=== PATIENT | female | born 1990 | race Two or more races ===

== ENCOUNTER 2018-06-03 01:37 | Day surgery (SDC) | payer BC ==
[~2018-06-03] VITALS: Ht 152.4 cm; Wt 48.5 kg
[~2018-06-03 01:37] MED LIST: DOXY25TA54 PO; MULT1CAP59 PO; VITA0.4T10 PO
[2018-06-03] MEDS ORDERED: fentaNYL CITR 100 MCG/2 ML AMP ONE ×2 (10:41→12:48)
[2018-06-03] MEDS ORDERED: DEXAMETHASONE SOD PHOS 10MG/ML ONE (10:41)
[2018-06-03] MEDS ORDERED: PROPOFOL EMUL(*) 10MG/ML 20 ML 40 ML ONE (10:41)
[2018-06-03] MEDS ORDERED: ONDANSETRON 4 MG/2 ML VIAL ONE (10:41)
[2018-06-03] MEDS ORDERED: LIDOCAINE MPF 1% 5 ML VIAL ONE (10:41)
[2018-06-03] MEDS ORDERED: PROPOFOL EMUL(*) 10MG/ML 20 ML 20 ML ONE (10:42)
[2018-06-03 10:57] LABS: PLATELET COUNT, AUTOMATED 301 K/uL (150-450)
[2018-06-03] MEDS ORDERED: LIDOCAINE/SOD BICARB 8.4% SYR ID ONE (11:15)
[2018-06-03] MEDS ORDERED: MIDAZOLAM 2 MG/2 ML VIAL IVP PRN (11:15)
[2018-06-03] MEDS ORDERED: NORMOSOL R SOLN(*) 1000 ML BAG 1,000 ML IV PRN (11:15)
[2018-06-03] MEDS ORDERED: FAMOTIDINE 20 MG TAB PO ONE (11:15)
[2018-06-03 11:33] VITALS: BP 102/58
[2018-06-03] MEDS ORDERED: SCOP1PAT16 TD (11:52)
[2018-06-03] MEDS ORDERED: NS 0.9% 20 ML SDV 20 ML ONE (12:02)
[2018-06-03] MEDS ORDERED: SILVER NITRATE SWABS 10 PKG TP ONE (12:03)
[2018-06-03] MEDS ORDERED: LR(*) 1000 ML BAG 1,000 ML IV ONE (12:20)
[2018-06-03] MEDS ORDERED: KETOROLAC 30 MG/ML VIAL ONE (12:25)
[2018-06-03] MEDS ORDERED: IBUP800T37 PO (12:27)
--- NOTE | 2018-06-03 12:34 | Hospitalist Depart ---
Discharge Summary Reason for Hosp/Final Diag: (1) History of dilation and curettage (2) Missed (3) Blighted ovum and nonhydatidiform mole Departure Weight (Pounds): 107 Result Diagram: 06/03/18 1047 Condition: Improved Discharge: Home Discharge Instructions Home Meds Active Scripts Ibuprofen (IBUPROFEN) 800 Mg Tablet, 1 TAB PO Q8H, #30 TAB 0 Refills Take with food every 8 hours. Prov:MICHELLE DAVIS 06/03/18 Reported Medications Scopolamine (Scopolamine) 1 Mg/3 Day Patch.td.3, 1 ADH.PATCH TD ONCE 06/03/18 Vitamin B Complex/Folic Acid (VITAMIN B-50 COMPLEX TABLET) 0.4 Mg Tablet, 0.4 MG PO HS 06/02/18 Multivitamin (MULTIVITAMINS) 1 Each Capsule, 1 EACH PO QDAY, CAPSULE 06/02/18 Doxylamine Succinate (UNISOM SLEEP AID) 25 Mg Tablet, 50 MG PO HS 06/02/18 Diet: Regular Activity: As Tolerated Special Instructions: Pelvic rest for 2 weeks Venous Thromboembolism VTE Risk Patient's VTE Risk: Low VTE Diagnostic Test 2 Days Prior to Admit: No Antithrombotics Is Pt On Any Antithrombotics?: No MICHELLE DAVIS Jun 03, 2018 12:34
--- NOTE | 2018-06-03 12:37 | Post Operative Note ---
Operative Note - [employer] Operative Day Date: Jun 03, 2018 Time: 12:36 Physicians Surgeon: Brando Anesthesia: GEN LMA Diagnosis Pre-Op Diagnosis: missed AB Post-Op Diagnosis: same Procedure Procedure(s): suction d&C Specimen Removed:(Maybe N/A): POC Complications: none Fluids Fluids: IV cyrstalloid Estimated Blood Loss: minimal Dictated Date OP Note Dictated: Jun 03, 2018 Time OP Note Dictated: 12:37 Copies to: JORGE LUIS HANNAH MD ; JORGE LUIS HANNAH MD Jun 03, 2018 12:37
[2018-06-03] MEDS ORDERED: PROMETHAZINE 25 MG/ML 1 ML AMP ONE (13:23)
[2018-06-03 13:45] VITALS: BP 112/56
[2018-06-03 14:00] VITALS: BP 111/63
[2018-06-03 14:02] VITALS: BP 124/73
--- NOTE | 2018-06-03 16:06 | OPERATIVE REPORT 1 ---
EVENT DATE: June 03, 2018 SURGEON: Henry Michaels MD ANESTHESIOLOGIST: Jorge Wiseman MD ANESTHESIA: General LMA. PREOPERATIVE DIAGNOSIS Missed spontaneous (blighted ovum). POSTOPERATIVE DIAGNOSIS Missed spontaneous (blighted ovum). PROCEDURE PERFORMED Suction dilation and curettage. ESTIMATED BLOOD LOSS Minimal. FLUIDS IV crystalloid. MEDICATIONS ADMINISTERED 1. Mefoxin 2 g IV. 2. Methergine 0.2 mg IM times one. PROCEDURE IN DETAIL The patient was brought to the operating room with a working IV, placed in the dorsal supine position. She was placed under general LMA anesthesia and moved to the dorsal lithotomy position. She was then prepped and draped in the usual sterile fashion. A weighted speculum was placed in the vagina, and the cervix was grasped on the anterior lip with a single tooth tenaculum. It was carefully sounded to a depth of 8 cm. The cervix was then carefully dilated to a size 7 Hegar dilator, and a 7 mm curved suction curette was selected and assembled. It was passed through the cervix into the uterus, and suction was applied to a pressure of 40 mmHg. It was rotated about while it was carefully withdrawn with a moderate amount of products of conception removed. It was carefully withdrawn all the way, and a sharp bovine curette was passed through the cervix into the uterus, and all four quadrants of the uterine arzate were curetted. A soft texture was palpable on the first pass; therefore, an additional pass with the curved suction curette removed a moderate amount of products of conception. Once completed, an additional pass with the curved suction curette now revealed a more gritty texture, and all four quadrants of the uterus were curetted until that gritty texture was consistent. It was then removed. Curved suction curette was then passed through the cervix into the uterus, and the remaining additional products of conception were evacuated. Once completed, there was a scant amount of bleeding. She was administered 0.2 mg of Methergine IM during the procedure. Awakened from general anesthesia in stable condition and taken to Recovery. [facility]
[2018-06-03 16:52] VITALS: BP 112/56
[2018-06-04] MEDS ORDERED: MIDAZOLAM 2 MG/2 ML VIAL IVP PRN (11:15)
== END 2018-06-03 13:45 | disposition home or self-care (01) ==
LOC: OR 01:37
PROVIDERS: ATTEND Obstetrics & Gynecology
DX: O02.1 Missed abortion (principal); O02.0 Blighted ovum and nonhydatidiform mole
CPT/HCPCS: 36415; 59820; 84702; 85025; 88305; J0694; J1100; J1885; J2001; J2250; J2405; J2550; J2704; J3010; J7050

== ENCOUNTER 2018-09-21 16:14 | Emergency (ER) | payer BC ==
[~2018-09-21 16:14] MED LIST changes: +IBUP800T37 PO; +SCOP1PAT16 TD
[2018-09-21] MEDS ORDERED: NS(*) 0.9% 1000 ML BAG 1,000 ML IV ONE (16:20)
--- NOTE | 2018-09-21 16:52 | ER Report ---
History and Physical Time Seen By MD: 16:34 Hx. of Stated Complaint: 6-week OB presenting with vaginal bleeding, spotting started last night. R suprapubic tenderness and cramping. (ISAAC MIRZA DO) HPI/ROS CHIEF COMPLAINT: spotting HISTORY OF PRESENT ILLNESS: Pt here for evaluation of spotting. Pt states she is 6 weeks . Has an appt for blood test this Friday and an Ultrasound and ob appt on the . Pt states yesterday had some light spotting that was dark brown. Had some cramping overnight. Today after walking the dog her s potting became greater. Not has heavy as a period. Came her to be checked. no dysuria. Pt has hx of nonhydidiform mole back in May 2018 REVIEW OF SYSTEMS: Constitutional: No fever, no chills. Eyes: No discharge. ENT: No sore throat. Cardiovascular: No chest pain, no palpitations. Respiratory: No cough, no shortness of breath. Gastrointestinal: No abdominal pain, no vomiting. Genitourinary: No hematuria, + spotting Musculoskeletal: No back pain. Skin: No rashes. Neurological: No headache. (ISAAC MIRZA DO) Allergies: Coded Allergies: No Known Drug Allergies (Unverified , 06/02/18) Home Meds Active Scripts Ibuprofen (IBUPROFEN) 800 Mg Tablet, 1 TAB PO Q8H, #30 TAB 0 Refills Take with food every 8 hours. Prov:MICHELLE DAVIS 06/03/18 Reported Medications Vitamin B Complex/Folic Acid (VITAMIN B-50 COMPLEX TABLET) 0.4 Mg Tablet, 0.4 MG PO HS 06/02/18 Multivitamin (MULTIVITAMINS) 1 Each Capsule, 1 EACH PO QDAY, CAPSULE 06/02/18 Doxylamine Succinate (UNISOM SLEEP AID) 25 Mg Tablet, 50 MG PO HS 06/02/18 Past Medical/Surgical History Pmhx: non hadidiform mole PSHX; DE (ISAAC MIRZA DO) Reviewed Nurses Notes: Yes Old Medical Records Reviewed: Yes (ISAAC MIRZA DO) Hx Smoking: No Hx Substance Use Disorder: No Hx Alcohol Use: No (ISAAC MIRZA DO) Constitutional Vital Sign - Last 24 Hours 09/21/18 09/21/18 09/21/18 09/21/18 16:24 16:29 16:44 16:47 Temp 98.5 Pulse 88 ??? 85 Resp 16 B/P (MAP) 120/84 (96) 125/75 (92) 125/75 Pulse Ox 99 99 O2 Delivery Room Air 09/21/18 09/21/18 09/21/18 09/21/18 17:00 17:29 17:30 17:44 Pulse 86 104 B/P (MAP) 125/60 (81) 108/58 (75) Pulse Ox 97 09/21/18 09/21/18 09/21/18 09/21/18 17:59 18:00 18:10 18:15 Pulse 95 92 89 B/P (MAP) 122/67 (85) Pulse Ox 96 97 09/21/18 09/21/18 09/21/18 09/21/18 18:30 18:45 19:00 19:15 Pulse 81 82 76 85 B/P (MAP) 110/62 (78) 112/59 (76) Pulse Ox 99 99 97 96 09/21/18 19:30 Pulse 90 B/P (MAP) 117/82 (94) Pulse Ox 97 (EVELYN NUNES MD) Physical Exam General Appearance: The patient is alert, has no immediate need for airway protection and no signs of toxicity. Eyes: Pupils equal and round no pallor or injection, EOMI ENT: no pharyngeal erythema or exudates, Mucous membranes are moist Respiratory: There are no retractions, lungs are clear to auscultation. Cardiovascular: Regular rate and rhythm. pulses are equal and symmetrical Gastrointestinal: Abdomen is soft and non tender, no masses, bowel sounds normal, no guarding, no rigidity or rebound Pelvic: No blood in vault; Os closed, No cervical motion tendness Neurological: Cranial nerves II-XII grossly intact, no sensory or motor loss Skin: Warm and dry, no rashes. Musculoskeletal: Neck is supple non tender, no vertebral tenderness Extremities are nontender, nonswollen and have full range of motion. DIFFERENTIAL DIAGNOSIS: After history and physical exam differential diagnosis w as considered for threatened AB, miscarriage (LAURORA,ISAAC V DO) Medical Decision Making Data Points Laboratory Hematology Test 09/21/18 16:35 Human Chorionic Gonadotropin, Quant 05896 mIU/ml Chemistry Test 09/21/18 16:35 Human Chorionic Gonadotropin, Quant 51602 mIU/ml (EVELYN NUNES MD) EKG/Imaging Imaging EXAMINATION: Transvaginal first trimester OB ultrasound HISTORY: First trimester . Spotting and cramping. History of miscarriage. COMPARISON: None. LMP: 08/10/2018, 6 weeks and 0 days. LOVE by LMP: 05/17/2019. 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 Exam is positive for a single live intrauterine . An intrauterine gestational sac is present along the left uterine horn, containing a yolk sac and pole. [place]-rump length measures 0.44 cm, corresponding with a gestational age of 6 weeks and 1 day. cardiac activity is visualized at 99 bpm. There is a moderate-sized subchorionic hemorrhage along the inferior margin of the gestational sac, measuring 0.7 x 0.8 x 1.2 cm. There is some additional hypoechoic fluid/blood products distending the contralateral right uterine horn, measuring approximately 1.5 x 2.5 x 1.0 cm. Normal size and appearance of both ovaries. The right ovary measures 3.5 x 1.8 x 2.9 cm; the left ovary 2.1 x 3.3 x 3.4 cm. The left ovary contains a corpus luteum. Both ovaries demonstrate normal vascularity with Doppler. No abnormal adnexal mass is visualized. No free fluid in the pelvis. IMPRESSION: 1. Single live intrauterine . [place]-rump length corresponds with a gestational age of 6 weeks and 1 day, which correlates well with the reported LMP. 2. heart rate 99 bpm. 3. 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 The gestational sac is located along the left uterine horn. 4. Subchorionic hemorrhage adjacent to the inferior margin of the gestational sac measuring up to 1.2 cm, with some additional hypoechoic fluid/blood products partially distending the contralateral right uterine horn. 5. Unremarkable adnexa. No free fluid in the pelvis. Report Dictated By: John Adhikari MD at 09/21/2018 6:46 PM (EVELYN NUNES MD) ED Course/Re-evaluation ED Course check quant and rh. Obtain US. Pts B+ blood type. Awaiting US 09/21/2018 5:50:43 pm Pt signed out to Dr. Nunes pending US report. Pt will need repeat BHCG in 48 hours, script given to obtain. (ISAAC MIRZA DO) ED Course I assumed care of this patient from Dr. Mirza at shift change today. Reviewed ultrasound and lab results with the patient. Discussed what to expect is she is having a miscarriage. She will follow-up with Quant HCG on and follow- up with Dr. Michaels. Decision to Disposition Date: Sep 21, 2018 Decision to Disposition Time: 19:35 (EVELYN NUNES MD) Depart Departure Latest Vital Signs Vital Signs Date Time Temp Pulse Resp B/P (MAP) Pulse Ox O2 Delivery O2 Flow Rate FiO2 09/21/18 19:30 90 117/82 (94) 97 09/21/18 16:47 98.5 16 Room Air (EVELYN NUNES MD) Impression: Primary Impression: Threatened Condition: Improved Disposition: HOME OR SELF-CARE Patient Instructions: Threatened Miscarriage (ED) Additional Instructions: Light to moderate activity. Pelvic rest (meaning nothing in the vagina) Follow-up blood test on Friday. Call Dr. Michaels's office for further follow-up instructions. Okay to use Tylenol or Ibuprofen as needed for pain. ISAAC MIRZA DO Sep 21, 2018 16:52 EVELYN NUNES MD Sep 21, 2018 18:09
--- NOTE | 2018-09-21 18:59 | RADIOLOGY IMAGING REPORT ---
FACILITY: [facility] [place] PATIENT NAME: Anna Morales : 1990 MR: [id number] V: [id number] EXAM DATE: ORDERING PHYSICIAN: ISAAC MIRZA TECHNOLOGIST: Location: [facility] Patient: Anna Morales : 1990 Visit/Account:[id number] Date of Sevice: 09/21/2018 EXAMINATION: Transvaginal first trimester OB ultrasound HISTORY: First trimester . Spotting and cramping. History of miscarriage. COMPARISON: None. LMP: 08/10/2018, 6 weeks and 0 days. LOVE by LMP: 05/17/2019. 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 Exam is positive for a single live intrauterine . An intrauterine gestational sac is present along the left uterine horn, containing a yolk sac and pole. [place]-rump length measures 0.44 c m, corresponding with a gestational age of 6 weeks and 1 day. cardiac activity is visualized at 99 bpm. There is a moderate-sized subchorionic hemorrhage along the inferior margin of the gestational sac, m easuring 0.7 x 0.8 x 1.2 cm. There is some additional hypoechoic fluid/blood products distending the contralateral right uterine horn, measuring approximately 1.5 x 2.5 x 1.0 cm. Normal size and appearance of both ovaries. The right ovary measures 3.5 x 1.8 x 2.9 cm; the left ova ry 2.1 x 3.3 x 3.4 cm. The left ovary contains a corpus luteum. Both ovaries demonstrate normal vascu larity with Doppler. No abnormal adnexal mass is visualized. No free fluid in the pelvis. IMPRESSION: 1. Single live intrauterine . [place]-rump length corresponds with a gestational age of 6 week s and 1 day, which correlates well with the reported LMP. 2. heart rate 99 bpm. 3. 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 The gestational sac is located along the left uterine horn. 4. Subchorionic hemorrhage adjacent to the inferior margin of the gestational sac measuring up to 1.2 cm, with some additional hypoechoic fluid/blood products partially distending the contralateral righ t uterine horn. 5. Unremarkable adnexa. No free fluid in the pelvis. Report Dictated By: John dAhikari MD at 09/21/2018 6:46 PM Report E-Signed By: John Adhikari MD at 09/21/2018 6:55 PM WSN:[id number]
[2018-09-21 19:30] VITALS: BP 117/82
== END 2018-09-21 19:53 | disposition home or self-care (01) ==
LOC: ER 16:14
DX: O20.0 Threatened abortion (principal); Z3A.01 Less than 8 weeks gestation of pregnancy
CPT/HCPCS: 76817; 84702; 86900; 86901; 96360; 99284; J7030

== ENCOUNTER → 2018-09-23 | Outpatient (CLI) | payer BC | LOC: LAB 13:11 | PROVIDERS: ATTEND Obstetrics & Gynecology | DX: O20.0 Threatened abortion (principal) | CPT/HCPCS: 36415; 84702 ==

== ENCOUNTER → 2018-09-25 | Outpatient (REF) | payer BC ==
[2018-09-25 13:28] LABS: PLATELET COUNT, AUTOMATED 291 K/uL (150-450)
== END ==
LOC: ZZSENDIN 13:11
PROVIDERS: ATTEND Obstetrics & Gynecology
DX: Z36.89 Encounter for other specified antenatal screening (principal); Z3A.01 Less than 8 weeks gestation of pregnancy; O20.8 Other hemorrhage in early pregnancy
CPT/HCPCS: 81001; 84702; 85025; 86592; 86762; 86850; 86900; 86901; 87088; 87340